=== PATIENT | male | born 1980 | race African-American/Black ===

== ENCOUNTER 2022-10-19 07:39 | Emergency (ER) | payer OTHER ==
[2022-10-19 07:47] VITALS: BP 106/60; PULSE 71; RESP 18; TEMP 98; BMI 22.4
[2022-10-19] MEDS ORDERED: IBUPROFEN 600 MG TABLET (FP) PO ONE ×2 (08:30→08:44)
== END 2022-10-19 10:55 | disposition home or self-care (01) ==
LOC: JER 07:39
DX: R22.31 Localized swelling, mass and lump, right upper limb (principal); S69.91XA Unspecified injury of right wrist, hand and finger(s), initial encounter; M25.532 Pain in left wrist; W21.89XA Striking against or struck by other sports equipment, initial encounter
CPT/HCPCS: 73110-TC-LT-FY; 73130-TC-LT-FY; 99283-25

== ENCOUNTER 2023-12-09 19:24 | Emergency (ER) | payer OTHER ==
[2023-12-09 19:43] VITALS: BP 106/60; PULSE 78; RESP 18; TEMP 98.7; BMI 20.4
[2023-12-09] MEDS ORDERED: LIDOCAINE 4% PATCH TP ONE (21:46)
[2023-12-09] MEDS ORDERED: ACETAMINOPHEN INJECTION 100 ML IVPB ONE (21:46)
[2023-12-09 21:47] LABS: BASO % 1.6 % (0-2.0); EOS % 7.3 % (0-4.5); HEMATOCRIT 36.5 % (35.4-49); HEMOGLOBIN 12.3 GM/dL (11.7-16.9); LYMPH % 39.4 % (8-40); MCH 30.5 pg (25.7-33.7); MCHC 33.7 g/dl (32.0-35.9); MEAN CELL VOLUME 90.6 fl (80-96); MEAN PLT VOLUME 7.3 fl (7.5-11.1); MONO % 12.4 % (3.8-10.2); NEUT % 39.3 % (42.8-82.8); PLATELET COUNT 220 10^3/uL (134-434); RBC 4.03 M/mm3 (4.00-5.60); RDW 13.2 % (11.9-15.9); WHITE BLOOD COUNT 4.5 K/mm3 (4.0-10.0)
[2023-12-09] MEDS: ACETAMINOPHEN 1000 MG/100 ML BAG IVPB ONE (21:53)
[2023-12-09] MEDS: LIDOCAINE 4% PATCH TP ONE (21:53)
[2023-12-09 21:59] LABS: ALBUMIN 3.3 g/dl (3.4-5.0); BLOOD UREA NITROGEN 11.3 mg/dL (7-18); CALCIUM 8.8 mg/dL (8.5-10.1)
[2023-12-09] MEDS ORDERED: LIDOCAINE PATCH REMOVAL MC SCH (22:00)
[2023-12-09 22:02] LABS: CREATININE 0.9 mg/dL (0.55-1.3)
[2023-12-09 22:03] LABS: BILIRUBIN,TOTAL 0.2 mg/dL (0.2-1)
[2023-12-09 22:04] LABS: TOT PROT 6.3 g/dl (6.4-8.2)
== END 2023-12-09 22:30 | disposition home or self-care (01) ==
LOC: JER 19:24
PROC: 3E033NZ Introduction of Analgesics, Hypnotics, Sedatives into Peripheral Vein, Percutaneous Approach (ICD-10-PCS; principal; 2023-12-09)
DX: R07.9 Chest pain, unspecified (principal); Z20.822 Contact with and (suspected) exposure to COVID-19
CPT/HCPCS: 0241U-QW; 36415; 71046-TC-FY; 80053; 84484; 85025; 93005; 93010; 96374; 99285-25; J0131

== ENCOUNTER 2024-05-07 19:05 | Emergency (ER) | payer OTHER ==
[2024-05-07 19:17] VITALS: BP 120/73; PULSE 66; RESP 18; TEMP 98; BMI 21.1
[2024-05-07] MEDS ORDERED: ONDANSETRON *ODT* 4 MG TABLET ONE (20:42)
[2024-05-07] MEDS ORDERED: ACETAMINOPHEN 325 MG TABLET (FP) ONE (20:43)
[2024-05-07] MEDS: ONDANSETRON *ODT* 4 MG TABLET SL ONE (20:45)
[2024-05-07] MEDS: ACETAMINOPHEN 500 MG TABLET (FP) PO ONE (20:47)
[2024-05-07] MEDS ORDERED: TETRACAINE 0.5% OPHTH SOLN 2 ML BOTTLE ONE (22:06)
[2024-05-07] MEDS ORDERED: FLUORESCEIN NA 1 EA STRIP ONE (22:06)
[2024-05-07] MEDS: TETRACAINE 0.5% OPHTH SOLN 2 ML BOTTLE OS ONE (22:08)
[2024-05-07] MEDS: FLUORESCEIN NA 1 EA STRIP OS ONE (22:08)
[2024-05-07] MEDS: DIPHTH,PERTUSS(ACELL),TET 0.5 ML DISP.SYRIN IM ONE (23:44)
[2024-05-07] MEDS ORDERED: DIPHTH,PERTUSS(ACELL),TET 0.5 ML DISP.SYRIN IM ONE (23:44)
== END 2024-05-08 00:05 | disposition short-term general hospital (02) ==
LOC: JER 19:05
PROC: 3E0234Z Introduction of Serum, Toxoid and Vaccine into Muscle, Percutaneous Approach (ICD-10-PCS; principal; 2024-05-07)
DX: S02.832A Fracture of medial orbital wall, left side, initial encounter for closed fracture (principal); S05.12XA Contusion of eyeball and orbital tissues, left eye, initial encounter; R55 Syncope and collapse; R11.0 Nausea; R07.89 Other chest pain; W01.198A Fall on same level from slipping, tripping and stumbling with subsequent striking against other object, initial encounter; Z23 Encounter for immunization
CPT/HCPCS: 70450-TC; 70486-TC; 71250-TC; 72125-TC; 90471; 90715; 99285-25; Q0162

== ENCOUNTER 2025-03-15 19:44 | Emergency (ER) | payer OTHER ==
[2025-03-15 20:04] VITALS: BP 115/63; PULSE 78; RESP 16; TEMP 98.2; BMI 22.4
== END 2025-03-15 20:32 | disposition home or self-care (01) ==
LOC: JERFT 19:44
PROC: 0H96XZZ Drainage of Back Skin, External Approach (ICD-10-PCS; principal; 2025-03-15)
DX: L02.212 Cutaneous abscess of back [any part, except buttock and flank] (principal)
CPT/HCPCS: 10060; 87070; 87205; 99283-25